=== PATIENT | male | born 1990 | race Caucasian/White ===

== ENCOUNTER 2018-07-07 09:18 | Emergency (ER) | payer OTHER ==
[2018-07-07 09:37] VITALS: TEMP 97.2
--- NOTE | 2018-07-07 10:09 | XR ---
EXAMINATION TYPE: XR foot complete LT , 3 VIEWS DATE OF EXAM ORDERED: 07/07/2018 HISTORY: Pain. COMPARISON: None. FINDINGS: No fracture, dislocation or other osseous lesion is seen. IMPRESSION: NO ACUTE OSSEOUS LESION.
[2018-07-07] MEDS ORDERED: ONDANSETRON 4 MG ODT STARTER PACK 2 TAB BTL PO STA (10:13)
[2018-07-07] MEDS ORDERED: IBUPROFEN 600 MG STARTER PACK 4 TAB BTL PO STA (10:13)
--- NOTE | 2018-07-07 10:38 | ED ---
Extremity Problem HPI - General Chief complaint: Extremity Problem,Nontraumatic Stated complaint: left foot injury Time Seen by Provider: 07/07/18 09:25 Source: patient, RN notes reviewed, old records reviewed Mode of arrival: ambulatory Limitations: no limitations - History of Present Illness Initial comments: This is a 28 year old male with CC of left foot pain. Patient reports he also is having bilateral upper dental pain. Patient reports he has been skateboarding and having increased painof the left forefoot for the past month. Patient denies specific trauma to the foot. Patient denies any other symptoms. - Related Data Home Medications Medication Instructions Recorded Confirmed ALPRAZolam [Xanax] 1 mg PO DAILY PRN 02/16/16 07/07/18 Previous Rx's Medication Instructions Recorded Ibuprofen 600 mg PO TID #20 tablet 07/07/18 Penicillin V Potassium [Pen Vee K] 500 mg PO QID #28 tablet 07/07/18 Allergies Allergy/AdvReac Type Severity Reaction Status Date / Time No Known Allergies Allergy Verified 07/07/18 10:40 Review of Systems ROS Statement: Those systems with pertinent positive or pertinent negative responses have been documented in the HPI. ROS Other: All systems not noted in ROS Statement are negative. Past Medical History Past Medical History: No Reported History History of Any Multi-Drug Resistant Organisms: None Reported Additional Past Surgical History / Comment(s): skin grafts right arm and back Past Psychological History: Anxiety Smoking Status: Current every day smoker Past Alcohol Use History: Occasional Past Drug Use History: Marijuana General Exam - General Exam Comments Initial Comments: This is a 28 year old male, no distress. Limitations: no limitations General appearance: alert, in no apparent distress Head exam: Present: atraumatic, normocephalic, normal inspection Eye exam: Present: normal appearance, PERRL, EOMI. Absent: scleral icterus, conjunctival injection, periorbital swelling ENT exam: Present: normal exam, mucous membranes moist, other (poor dentition, broken upper molars) Neck exam: Present: normal inspection. Absent: tenderness, meningismus, lymphadenopathy Respiratory exam: Present: normal lung sounds bilaterally. Absent: respiratory distress, wheezes, rales, rhonchi, stridor Cardiovascular Exam: Present: regular rate, normal rhythm, normal heart sounds. Absent: systolic murmur, diastolic murmur, rubs, gallop, clicks GI/Abdominal exam: Present: soft, normal bowel sounds. Absent: distended, tenderness, guarding, rebound, rigid Extremities exam: Present: normal inspection, full ROM, normal capillary refill. Absent: tenderness, pedal edema, joint swelling, calf tenderness Back exam: Present: normal inspection Neurological exam: Present: alert, oriented X3, CN II-XII intact Psychiatric exam: Present: normal affect, normal mood Skin exam: Present: warm, dry, intact, normal color. Absent: rash Course Vital Signs 07/07/18 07/07/18 09:32 10:47 Temperature 97.2 F L 97.2 F L Pulse Rate 89 85 Respiratory 16 18 Rate Blood Pressure 133/72 128/70 O2 Sat by Pulse 95 95 Oximetry Medical Decision Making - Medical Decision Making 28 year old male presents with dental pain, L foot pain. Patient arrived to ED on skateboard. Foot appears normal, and is neurovascularly intact. Patient teeth have fractures. Patient has no abnormalities on L foot xray. Patient advised to follow up with PCP. Will given antibiotics for dental caries and gingival decay. All questiona nswered and return parameters discussed. - Radiology Data Radiology results: report reviewed foot Xray is negative for acute process. Disposition Clinical Impression: Sprain of left foot, Pain, dental, Vomiting Disposition: HOME SELF-CARE Condition: Good Instructions: Foot Sprain (ED), Toothache (ED) Additional Instructions: Take medication as prescribed. Follow-up with a dentist. Take anti- inflammatory medication and ice the foot. Return to the emergency department if any alarming signs or symptoms occur. [facility] [address] [address] [phone] (existing clients only) For new clients: [phone] 1st consult: $50 (includes Xrays) Usually 30% less then private dentist for visits after. [employer] Have to pay $50 for Xrays anmd rest is covered. [phone] Prescriptions: Ibuprofen 600 mg PO TID #20 tablet Penicillin V Potassium [Pen Vee K] 500 mg PO QID #28 tablet Is patient prescribed a controlled substance at d/c from ED?: No Referrals: Todd Rodriguez MD [Primary Care Provider] - 1-2 days Time of Disposition: 10:35
[2018-07-07 10:48] VITALS: BP 128/70; PULSE 85; RESP 18
== END 2018-07-07 10:48 | disposition home or self-care (01) ==
LOC: EC 09:18
DX: S02.5XXA Fracture of tooth (traumatic), initial encounter for closed fracture (principal); S93.602A Unspecified sprain of left foot, initial encounter; R11.10 Vomiting, unspecified; F17.200 Nicotine dependence, unspecified, uncomplicated; X58.XXXA Exposure to other specified factors, initial encounter
CPT/HCPCS: 73630; 99284; S0119

== ENCOUNTER 2022-03-28 14:47 | Emergency (ER) | payer OTHER ==
[2022-03-28 14:55] VITALS: BP 114/71; PULSE 97; RESP 18; TEMP 98.4
--- NOTE | 2022-03-28 16:46 | XR ---
EXAMINATION TYPE: XR hand complete LT DATE OF EXAM: 03/28/2022 COMPARISON: NONE HISTORY: Pain TECHNIQUE: 3 views FINDINGS: Metacarpals are intact. There is soft tissue swelling on the dorsum of the hand. Fingers ap pear intact. I see no fracture nor dislocation. Carpal bones are intact. IMPRESSION: Soft tissue swelling. No fracture.
--- NOTE | 2022-03-28 17:05 | ED ---
Upper Extremity HPI - General Chief Complaint: Extremity Injury, Upper Stated Complaint: Injury to L hand/fell @1430 Time Seen by Provider: 03/28/22 16:37 Source: patient Mode of arrival: ambulatory Limitations: no limitations - History of Present Illness Initial Comments: Changes left hand long boarding to work. 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 No significant radiation No headache, no fever or chills, no changes in vision or hearing, no sore throat or difficulty with speech, no neck pain, no chest pain or shortness of breath, no abdominal pain, no nausea or vomiting, no changes in urination or bowel movements, no numbness or tingling, no skin rashes or lesions. MD Complaint: Injury to:: left, hand - Related Data Home Medications Medication Instructions Recorded Confirmed ALPRAZolam [Xanax] 1 mg PO DAILY PRN 02/16/16 07/07/18 Previous Rx's Medication Instructions Recorded Ibuprofen 600 mg PO TID #20 tablet 07/07/18 Penicillin V Potassium [Pen Vee K] 500 mg PO QID #28 tablet 07/07/18 Acetaminophen [Tylenol] 500 mg PO Q4-6H PRN #24 tab 03/28/22 Ibuprofen [Motrin] 600 mg PO Q8HR PRN #30 tab 03/28/22 Allergies Allergy/AdvReac Type Severity Reaction Status Date / Time No Known Allergies Allergy Verified 03/28/22 14:55 Review of Systems ROS Statement: Those systems with pertinent positive or pertinent negative responses have been documented in the HPI. ROS Other: All systems not noted in ROS Statement are negative. Past Medical History Past Medical History: No Reported History History of Any Multi-Drug Resistant Organisms: None Reported Additional Past Surgical History / Comment(s): skin grafts right arm and back Past Psychological History: Anxiety Smoking Status: Current every day smoker Past Alcohol Use History: Occasional Past Drug Use History: Marijuana General Exam Limitations: no limitations General appearance: alert, in no apparent distress Head exam: Present: atraumatic, normocephalic, normal inspection Eye exam: Present: normal appearance, PERRL, EOMI. Absent: scleral icterus, conjunctival injection, periorbital swelling ENT exam: Present: normal exam, mucous membranes moist Neck exam: Present: normal inspection. Absent: tenderness, meningismus, lymphadenopathy Respiratory exam: Present: normal lung sounds bilaterally. Absent: respiratory distress, wheezes, rales, rhonchi, stridor Cardiovascular Exam: Present: regular rate, normal rhythm, normal heart sounds. Absent: systolic murmur, diastolic murmur, rubs, gallop, clicks GI/Abdominal exam: Present: soft, normal bowel sounds. Absent: distended, tenderness, guarding, rebound, rigid Extremities exam: Present: tenderness, normal capillary refill, other (Patient has swelling to the dorsum of the left hand. No break in skin integrity. Capillary refill less than 2 seconds. Pulses are intact. Full tendon function. Limited range of motion secondary to pain. Tenderness and ecchymosis in the dorsum of the hand. No wrist tenderness). Absent: full ROM Back exam: Present: normal inspection Neurological exam: Present: alert, oriented X3, CN II-XII intact Psychiatric exam: Present: normal affect, normal mood Skin exam: Present: warm, dry, intact, normal color. Absent: rash Course Vital Signs 03/28/22 14:52 Temperature 98.4 F Pulse Rate 97 Respiratory 18 Rate Blood Pressure 114/71 O2 Sat by Pulse 96 Oximetry Medical Decision Making - Medical Decision Making Isolated left hand injury, consistent with contusion. Full tendon function in a ll planes. Neurovascular status intact. Patient has previous nerve damage from a previous injury. We'll send the patient home on anti-inflammatory medication, acetaminophen, and light duty. Patient was told to return to the ER for any signs or symptoms worsen. Told to return immediately if any other problems arise. All questions answered. Treatment plan discussed. Patient in agreement Every effort has been made to ensure accuracy of this dictation. However, due to the limitations of electronic medical records and dictation devices, errors in charting still occur. [employer] Dr. Carreon Disposition Clinical Impression: Sprain of left hand Disposition: HOME SELF-CARE Condition: Good Instructions (If sedation given, give patient instructions): Hand Sprain (ED) Additional Instructions: Rest, ice 20 minutes on and off for times daily, Gonzalo wrap as directed. Follow- up with orthopedics as directed. Follow-up with your regular physician as directed. Return to the ER immediately if any symptoms worsen, new symptoms arise, or any other problems develop. Prescriptions: Ibuprofen [Motrin] 600 mg PO Q8HR PRN #30 tab PRN Reason: Pain Acetaminophen [Tylenol] 500 mg PO Q4-6H PRN #24 tab PRN Reason: Pain Is patient prescribed a controlled substance at d/c from ED?: No Referrals: Rey William PAC [PHYSICIAN [employer] OPERATOR] - 04/04/22 Time of Disposition: 17:04
== END 2022-03-28 17:22 | disposition home or self-care (01) ==
LOC: EC 14:47
DX: F17.200 Nicotine dependence, unspecified, uncomplicated (principal); S63.92XA Sprain of unspecified part of left wrist and hand, initial encounter; W19.XXXA Unspecified fall, initial encounter

== ENCOUNTER 2022-04-04 14:31 | Emergency (ER) | payer OTHER ==
[2022-04-04 15:51] VITALS: RESP 20
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
[2022-04-04 17:02] VITALS: BP 116/75; PULSE 92; TEMP 98.1
== END 2022-04-04 17:00 | disposition home or self-care (01) ==
LOC: EC 14:31
DX: S69.92XA Unspecified injury of left wrist, hand and finger(s), initial encounter (principal); F17.200 Nicotine dependence, unspecified, uncomplicated; F12.90 Cannabis use, unspecified, uncomplicated; X58.XXXA Exposure to other specified factors, initial encounter
CPT/HCPCS: 99282

== ENCOUNTER 2023-11-28 17:11 | Emergency (ER) | payer OTHER ==
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
[2023-11-28 19:05] LABS: ALT 15 U/L (4-49); AST 26 U/L (17-59); African American GFR (CKD) >90 (>60 ml/min/1.73 sqM); Albumin 4.6 g/dL (3.5-5.0); Alkaline Phosphatase 53 U/L (38-126); Anion Gap 8 mmol/L; Blood Urea Nitrogen 18 mg/dL (9-20); Calcium 9.4 mg/dL (8.4-10.2); Carbon Dioxide 29 mmol/L (22-30); Chloride 101 mmol/L (98-107); Glucose 86 mg/dL (74-99); Non-African American GFR(CKD) >90 (>60 ml/min/1.73 sqM); Potassium 4.6 mmol/L (3.5-5.1); Sodium 138 mmol/L (137-145); Total Bilirubin 0.4 mg/dL (0.2-1.3); Total Protein 7.3 g/dL (6.3-8.2)
[2023-11-28 19:08] LABS: Partial Thromboplastin Time 29.3 sec (22.0-30.0)
[2023-11-28 19:15] LABS: Basophils # (A) 0.1 k/uL (0-0.2); Basophils % (A) 1 %; Eosinophils % (A) 0 %; HCT 47.5 % (39.0-53.0); HGB 16.5 gm/dL (13.0-17.5); Lymphocytes # (A) 1.2 k/uL (1.0-4.8); Lymphocytes % (A) 21 %; MCH 31.4 pg (25.0-35.0); MCHC 34.8 g/dL (31.0-37.0); MCV 90.2 fL (80.0-100.0); Mean Platelet Volume 7.9; Monocytes # (A) 0.9 k/uL (0-1.0); Monocytes % (A) 15 %; Neutrophils # (A) 3.4 k/uL (1.3-7.7); Neutrophils % (A) 60 %; Platelet Count 259 k/uL (150-450); RBC 5.27 m/uL (4.30-5.90); RDW 12.3 % (11.5-15.5); WBC 5.7 k/uL (3.8-10.6)
[2023-11-28 19:33] LABS: Appearance,Urine Clear (Clear); Bilirubin,Urine Negative (Negative); Blood,Urine Negative (Negative); Color,Urine Light Yellow; Glucose,Urine (UA) Negative (Negative); Ketones,Urine Negative (Negative); Leukocyte Esterase,Urine Negative (Negative); Nitrite,Urine Negative (Negative); Protein,Urine Negative (Negative); Specific Gravity,Urine 1.025 (1.001-1.035); Urobilinogen,Urine <2.0 mg/dL (<2.0)
--- NOTE | 2023-11-28 19:52 | XR ---
EXAMINATION TYPE: XR chest 2V DATE OF EXAM: 11/28/2023 7:43 PM CLINICAL INDICATION:Male, 33 years old with history of pain; [facility] COMPARISON: None. TECHNIQUE: XR chest 2V Frontal and lateral views of the chest. FINDINGS: Lungs/Pleura: Subsegmental atelectasis is present in the lung bases, right greater than left. No evid ence of pleural effusion or pneumothorax. Pulmonary vascularity: Unremarkable. Heart/mediastinum: Cardiomediastinal silhouette is unremarkable. Musculoskeletal: No acute osseous pathology. IMPRESSION: No acute cardiopulmonary disease/process.
[2023-11-28 20:28] VITALS: BP 127/78; PULSE 92; RESP 18; TEMP 98.7
== END 2023-11-28 20:15 | disposition home or self-care (01) ==
LOC: EC 17:11
DX: J10.1 Influenza due to other identified influenza virus with other respiratory manifestations (principal); F17.290 Nicotine dependence, other tobacco product, uncomplicated; F12.90 Cannabis use, unspecified, uncomplicated; Z20.822 Contact with and (suspected) exposure to COVID-19
CPT/HCPCS: 36415; 71046; 80053; 81003; 84484; 85025; 85610; 85730; 87636; 93005; 99284